=== PATIENT | male | born 1955 | race Hispanic/Latino ===

== ENCOUNTER → 2018-05-07 | Outpatient (CLI) | payer OTHER | END | disposition home or self-care (01) | LOC: OIH 10:36 | PROVIDERS: ATTEND Physical Medicine & Rehabilitation | DX: M48.02 Spinal stenosis, cervical region (principal); M25.78 Osteophyte, vertebrae; M62.838 Other muscle spasm | CPT/HCPCS: 72125 ==

== ENCOUNTER → 2023-01-12 | Outpatient (CLI) | payer OTHER | END | disposition home or self-care (01) | LOC: RAH 13:03 | PROVIDERS: ATTEND Physical Medicine & Rehabilitation | DX: S06.0XAA Concussion with loss of consciousness status unknown, initial encounter (principal); R26.0 Ataxic gait; G31.9 Degenerative disease of nervous system, unspecified; X58.XXXA Exposure to other specified factors, initial encounter; Y93.89 Activity, other specified; Y92.89 Other specified places as the place of occurrence of the external cause; Y99.8 Other external cause status | CPT/HCPCS: 70450 ==

== ENCOUNTER → 2025-04-15 | Outpatient (CLI) | payer OTHER ==
--- NOTE | 2025-04-15 17:57 | HMCIMG ---
EXAM: CT Head Without Intravenous Contrast. CLINICAL HISTORY: 69-year-old male presents with cerebrospinal fluid. TECHNIQUE: Axial computed tomography images of the head/brain without intravenous contrast. Dose reduction technique was used including one or more of the following: automated exposure control, adjustment of mA and kV according to patient size, and/or iterative reconstruction. CONTRAST: Without. COMPARISON: CT head dated 01/12/2023, 14:07 pm. FINDINGS: BRAIN: Moderate atrophy. Moderate chronic ischemic changes. No acute intraparenchymal hemorrhage. No mass lesion. No CT evidence for acute territorial infarct. No midline shift or extra-axial collection. VENTRICLES: A right-sided ventriculoperitoneal shunt with the tip in the anterior horn of the right lateral ventricle is present. No hydrocephalus. ORBITS: The orbits are unremarkable. SINUSES AND MASTOIDS: Postsurgical changes bilateral maxillary sinus ragnel. The remaining paranasal sinuses and mastoid air cells are clear. SOFT TISSUES: No significant facial or scalp soft tissue swelling evident. No radiopaque foreign body is seen. BONES: No acute skull fracture. IMPRESSION: 1. No acute intracranial abnormality. 2. Moderate atrophy and moderate chronic ischemic changes, similar to prior CT head dated 01/12/2023. 3. Right-sided ventriculoperitoneal shunt with the tip in the anterior horn of the right lateral ventricle. /[place]
== END | disposition home or self-care (01) ==
LOC: RAH 12:33
PROVIDERS: ATTEND Physical Medicine & Rehabilitation
DX: I67.82 Cerebral ischemia (principal); G31.89 Other specified degenerative diseases of nervous system; Z98.2 Presence of cerebrospinal fluid drainage device
CPT/HCPCS: 70450

== ENCOUNTER → 2025-05-18 | Outpatient (CLI) | payer OTHER ==
--- NOTE | 2025-05-18 13:34 | HMCIMG ---
EXAM: CHEST RADIOGRAPH, 1 VIEW Technique: Single frontal view. Clinical Information: Presence of cerebrospinal fluid drainage device. Findings: Pulmonary cano: No pulmonary infiltrates or nodules; symmetrical aeration. Cardiac silhouette: Cardiac size within normal limits. Mediastinum and william: No mediastinal mass or widening; retrosternal space clear. Osseous structures: Limited evaluation of ribs and thoracic spine shows no acute abnormality. Miscellaneous: No pneumothorax or pleural effusion; costophrenic angles are clear; ventriculoperitoneal shunt tubing projects over the right chest and upper abdomen.IMPRESSION: 1. Ventriculoperitoneal shunt tubing projects over the right chest and upper abdomen without radiographic complication. 2. No acute cardiopulmonary findings, including no pulmonary infiltrates, nodules, pneumothorax, or pleural effusion. 3. Cardiac size within normal limits. 4. No mediastinal mass or widening. 5. Limited evaluation of ribs and thoracic spine shows no acute abnormality. /[place]
--- NOTE | 2025-05-20 06:18 | HMCIMG ---
EXAM: CR Cervical spine, 1 View. CLINICAL HISTORY: Presence of cerebrospinal fluid drainage device COMPARISON: None provided. FINDINGS: BONES: No acute fracture or aggressive appearing osseous lesion. DISCS/DEGENERATIVE CHANGES: Mild spondylosis with mildly reduced disc spaces from C3 to C6 level SOFT TISSUES: No prevertebral soft tissue swelling. The visualized lung apices are clear. CSF drainage tube in position IMPRESSION: No acute cervical spine abnormality. Mild spondylosis with mildly reduced disc spaces from C3 to C6 level /[place]
--- NOTE | 2025-05-20 06:20 | HMCIMG ---
EXAM: CR Skull, 2 View. CLINICAL HISTORY: Presence of cerebrospinal fluid drainage device COMPARISON: None provided. FINDINGS: BONES: No acute fracture or aggressive appearing osseous lesion. CSF drainage tube in position SINUSES: Unremarkable. No air-fluid levels. SOFT TISSUES: The soft tissues are unremarkable. IMPRESSION: No acute abnormalities. /[place]
== END | disposition home or self-care (01) ==
LOC: RAH 05-15 11:19
PROVIDERS: ATTEND Physical Medicine & Rehabilitation
DX: M47.812 Spondylosis without myelopathy or radiculopathy, cervical region (principal); M50.31 Other cervical disc degeneration, high cervical region; M50.321 Other cervical disc degeneration at C4-C5 level; M50.322 Other cervical disc degeneration at C5-C6 level; Z98.3 Post therapeutic collapse of lung status; Z98.2 Presence of cerebrospinal fluid drainage device
CPT/HCPCS: 70250; 71045; 72040